=== PATIENT | female | born 1970 | race Two or more races ===

== ENCOUNTER 2024-08-25 10:50 | Outpatient (CLI) | payer OTHER | END 2024-08-25 10:57 | disposition home or self-care (01) | LOC: SONOGRAMA 10:50 | PROVIDERS: ATTEND General Practice | DX: E04.9 Nontoxic goiter, unspecified (principal) ==

== ENCOUNTER 2024-09-01 08:05 | Day surgery (SDC) | payer OTHER ==
[2024-08-25 09:44] VITALS: BP 137/92
[2024-08-25 10:14] LABS: PH,URINE 6.5 (5.0-8.0); URINE APPEARANCE Clear; URINE BILIRRUBIN Negative (NEGATIVE); URINE BLOOD NHT; URINE COLOR Yellow; URINE GLUCOSE Negative (NEGATIVE); URINE KETONE Negative (NEGATIVE); URINE LEUKOCYTE Negative; URINE NITRATE Negative; URINE PROTEIN Negative (NEGATIVE); URINE UROBILINOGEN 0.2 E.U./dl
[2024-08-25 10:17] LABS: HEMATOCRIT 42.3 % (36.0-45.00); HEMOGLOBIN 14.5 g/dL (12.0-15.00); MEAN CELL VOLUME 84.7 fL (80.00-100.00); MEAN CORPUSCULAR HEMOGLOBIN 29.1 pg (27.00-32.0); MEAN CORPUSCULAR HGB CONC 34.4 g/dl (32.0-36.0); PLATELET COUNT 215 K/uL (150-450)
[2024-08-25 10:20] LABS: URINE BACTERIA 502.8 uL (0.0-1933); URINE EPITHELIAL CELLS 9.4 uL (0.0-38.8); URINE RBC 20.7 uL (0.0-20.8); URINE WBC 3.7 uL (0.0-23.2)
[2024-08-25 10:54] LABS: BILIRUBIN TOTAL 0.51 mg/dL (0.3-1.2); CALCIUM 9.5 mg/dL (8.5-10.1); CREATININE SERUM 0.75 mg/dL (0.55-1.02); GFR 81.15; GLOBULINA 3.3 G/DL (2.4-3.5); POTASSIUM 4.98 mEq/L (3.5-5.1); TOTAL PROTEIN 7.3 gm/dL (6.4-8.2)
[2024-08-25 11:12] LABS: INR 0.96; PARTIAL THROMBOPLASTIN TIME 27.8 SECONDS (22.0-34.0); PROTHROMBIN TIME 10.5 SECONDS (9.0-11.5)
[2024-08-25 11:15] LABS: COVID-19 AG POSITIVE (NEGATIVE)
[~2024-09-01] VITALS: Ht 167.6 cm; Wt 99.8 kg
[2024-09-01] MEDS ORDERED: POVIDONE-IODINE 118 ML BOTT TOP ONE (13:29)
[2024-09-01] MEDS ORDERED: NEOMYCIN/POLYMYXIN B/HYDROCORT 20 DR/ML BOTTLE OT ONE (13:47)
[2024-09-01] MEDS ORDERED: PROMETHAZINE HCL 25 MG/ML AMPUL IM PRN (14:15)
[2024-09-01] MEDS ORDERED: KETOROLAC TROMETHAMINE 60 MG VIAL IM PRN (14:15)
== END 2024-09-01 16:45 | disposition home or self-care (01) ==
LOC: CIR.AMB 08:05
PROVIDERS: ATTEND Otolaryngology Otology & Neurotology
DX: H65.21 Chronic serous otitis media, right ear (principal); H66.91 Otitis media, unspecified, right ear; Z88.0 Allergy status to penicillin; Z88.2 Allergy status to sulfonamides